=== PATIENT | female | born 1990 | race Hispanic/Latino ===

== ENCOUNTER 2024-10-16 20:52 | Emergency (ER) | payer OTHER ==
[~2024-10-16] VITALS: Ht 154.9 cm; Wt 81.2 kg
[2024-10-16] MEDS ORDERED: FAMOTIDINE 20 MG/2 ML VIAL IV STA (21:30)
[2024-10-16] MEDS ORDERED: KETOROLAC TROMETHAMINE 30 MG/ML VIAL IV STA (21:30)
[2024-10-16] MEDS ORDERED: SODIUM CHLORIDE 0.9% 1000ML 1,000 ML IV SCH (21:30)
[2024-10-16] MEDS ORDERED: MAGNESIUM/ALUMINUM/SIMETHICONE 30 ML UDC PO ONE (21:30)
[2024-10-16] MEDS ORDERED: IOPAMIDOL 370 MG/ML 100 ML INFUS..BTL INJ ONE (21:52)
[2024-10-17] MEDS: MAGNESIUM/ALUMINUM/SIMETHICONE 30 ML UDC PO ONE (00:11)
[2024-10-17] MEDS: FAMOTIDINE 20 MG/2 ML VIAL IV STA (00:11)
[2024-10-17] MEDS: KETOROLAC TROMETHAMINE 30 MG/ML VIAL IV STA (00:12)
[2024-10-17] MEDS: SODIUM CHLORIDE 0.9% 1000ML 1,000 ML IV SCH (00:12)
[2024-10-17] MEDS: ONDANSETRON HCL INJ 2MG/ML 2ML 2 MG/ML VIAL IV STA (00:13)
[2024-10-17 00:47] VITALS: PULSE 60; RESP 16; TEMP 97.7
[2024-10-17 01:29] VITALS: BP 127/82; PULSE 60; RESP 16; TEMP 97.7; O2SAT 100
== END 2024-10-17 01:20 | disposition home or self-care (01) ==
LOC: FSED 21:18
DX: R10.12 Left upper quadrant pain (principal); K29.70 Gastritis, unspecified, without bleeding; R11.0 Nausea; E66.9 Obesity, unspecified; Z98.84 Bariatric surgery status
CPT/HCPCS: 71046; 74177; 80048; 80076; 81003; 81025; 85025; 99284; J1308; J1885; J2405; J7030; Q9967